=== PATIENT | male | born 1975 | race Caucasian/White ===

== ENCOUNTER 2020-12-01 11:54 | Outpatient (CLI) | payer OTHER, SELFPAY ==
--- NOTE | ~2020-12-01 | XR_ITS ---
EXAMINATION: XR chest 2V DATE: 12/01/2020 12:09 INDICATION: Chronic obstructive pulmonary disease. TECHNIQUE: Frontal and lateral views of the chest were obtained. COMPARISON: Chest 2 views 01/05/2017 FINDINGS: A calcified left lung nodule is consistent with old granulomatous disease. No pleural effus ion or pneumothorax. The heart size is normal. IMPRESSION: 1. No acute cardiopulmonary disease. Reviewed, dictated and finalized at location A.
== END 2020-12-01 11:55 | disposition home or self-care (01) ==
LOC: ANHIMG 12:00
PROVIDERS: PCP Family Medicine; Visit Provider Surgery
DX: J44.9 Chronic obstructive pulmonary disease, unspecified (principal); F17.210 Nicotine dependence, cigarettes, uncomplicated
CPT/HCPCS: 71046

== ENCOUNTER 2022-11-01 00:02 | Emergency (ER) | payer OTHER, SELFPAY ==
[2022-11-01 00:22] VITALS: BP 159/113; PULSE 96; RESP 20; TEMP 36.6; O2SAT 100
--- NOTE | 2022-11-01 00:49 | ECG_ITS ---
Measurements Intervals [place] Rate: 86 P: 31 VA: 146 QRS: 79 QRSD: 90 T: 56 QT: 359 QTc: 432 Interpretive Statements SINUS RHYTHM NORMAL ECG NO PREVIOUS ECG AVAILABLE FOR COMPARISON Electronically Signed On 11-01-2022 16:53:08 DIRECT SUPPORT SPECIALIST by Andi Haynes D.O.
[2022-11-01 01:42] LABS: Basophils Percent Auto 0.5 % (0.2-1.2); Eosinophils Absolute Auto 0.1 K/mm3 (0-0.3); Eosinophils Percent Auto 1.5 % (0-4.4); Hematocrit 42.9 % (42.0-52.0); Hemoglobin 14.1 g/dL (14.0-18.0); Immature Granulocyte Absolute 0.02 K/mm3 (0.00-0.031); Immature Granulocyte Percent A 0.3 % (0-0.5); Lymphocytes Absolute Auto 1.72 K/mm3 (0.9-3.2); Lymphocytes Percent Auto 21.9 % (18.3-44.2); Mean Corpuscular HGB Conc 32.9 g/dl (32-36); Mean Corpuscular Hemoglobin 27.9 pg (26-34); Mean Corpuscular Volume 84.8 fl (80-100); Monocytes Absolute Auto 0.7 K/mm3 (0.1-0.6); Monocytes Percent Auto 8.4 % (2.6-8.5); Neutrophils Absolute Auto 5.3 K/mm3 (1.3-6.7); Neutrophils Percent Auto 67.4 % (45.5-73.1); Platelet Count Result 338 k/mm3 (150-375); Red Blood Count 5.06 M/mm3 (4.6-6.20); Red Cell Distribution Width 12.2 % (11.5-14.5); White Blood Count 7.9 K/mm3 (4.5-10.0)
[2022-11-01 02:05] LABS: Alanine Aminotransferase 75 U/L (6-50); Albumin Level 4.6 g/dL (3.5-5.1); Alkaline Phosphatase 127 U/L (38-126); Anion Gap 7 mmol/L (8-16); Aspartate Amino Transferase 62 U/L (17-59); Bilirubin,Total 0.7 mg/dL (0.2-1.3); Blood Urea Nitrogen 16 mg/dL (9-20); Calcium 9.3 mg/dL (8.4-10.2); Carbon Dioxide 28 mmol/L (22-30); Chloride 101 mmol/L (98-107); Estimated CRCL calculation 140 ml/min; Estimated Glomerular Filt Rate > 60; Glucose 118 mg/dL (65-110); Sodium 136 mmol/L (137-145)
[2022-11-01 02:18] LABS: Acetaminophen < 10 ug/mL (10-30); Ethanol < 10 mg/dL (<10); Salicylate < 1.0 mg/dL (2-20)
[2022-11-01 02:19] LABS: Appearance Urine Clear (Clear); Bilirubin Urine Negative (Negative); Blood Urine Negative (Negative); Color Urine Dark Yellow (Yellow); Glucose Urine UA Negative (Negative); Ketones Urine Negative (Negative); Leukocyte Esterase Ur Negative LEU/UL (Negative); Nitrate Urine Negative (Negative); Protein Urine Negative (Negative); Specific Grav Ur 1.027 (1.001-1.035)
[2022-11-01 02:27] LABS: Add Urine Microscopic? NO
[2022-11-01 02:28] LABS: Barbiturate Screen Urine Negative (Negative); Benzodiazepines Screen Urine Negative (Negative)
[2022-11-01 02:29] LABS: Cannabinoid Screen Urine Positive (Negative); Cocaine Screen Urine Negative (Negative); Methadone Screen Urine Negative (Negative); Opiate Screen Urine Negative (Negative); Phencyclidine Screen Urine Negative (Negative)
[2022-11-01 02:38] LABS: SARS-CoV-2 RNA PCR Negative
--- NOTE | 2022-11-01 02:49 | PC.NURSE ---
Pt medically cleared and CRISIS called at this time.
[2022-11-01 02:51] LABS: Amphetamine Screen Urine Positive (Negative)
--- NOTE | 2022-11-01 03:36 | ED.GENADULT ---
HPI - General Adult General Chief complaint: Overdose <Emil Hughes MD - Last Filed: 11/01/22 19:27> Stated complaint: overdose <Emil Hughes MD - Last Filed: 11/01/22 19:27> Time Seen by Provider: 11/01/22 01:36 <Emil Hughes MD - Last Filed: 11/01/22 19:27> History of Present Illness HPI narrative: this is a 46-year-old male presenting ED for suicidal ideation. Patient was pulled over by the police and took 7 pills of fentanyl. This is approximatelly 700 mcg. Patient typically takes around 1250 mcg per day. He usually injects his fentanyl. The police brought the patient to the hospital for suspected impending overdose. During the nursing screening exam the patient stated that he wanted to kill himself and thinks about dying every day. I spoke with patient he denies suicidal or homicidal ideation. He denies access to a firearm. He denies auditory or visual hallucinations. He does admit to alcohol and meth and cannabis use. He is not on any psychiatric medications. he has attempted to commit suicide in the past by hanging himself and overdose. Patient denies physical complaints this time. <Emil Hughes MD - Last Filed: 11/01/22 19:27> [facility] Past Medical History Medical History: Medical History Bipolar 1 disorder <Emil Hughes MD - Last Filed: 11/01/22 19:27> Social History Social History: Social History (Updated 11/01/22 @ 03:38 by Emil Hughes MD) Social History: positive for methamphetamines cigarettes IV fentanyl and THC Substance use type: opiates <Emil Hughes MD - Last Filed: 11/01/22 19:27> Exam Narrative: APPEARANCE: No apparent distress. Head: atraumatic. EYES: EOMI, NOSE: Atraumatic NECK: Trachea midline RESPIRATORY: No increased rate of breathing, clear to auscultation bilaterally CARDIOVASCULAR: RRR, no peripheral edema ABDOMINAL: Non-distended MUSCULOSKELETAl: No obvious deformities NEURO: Alert. Moving 4/4 extremities SKIN:: track maurer over the patient's arms PSYCHIATRIC: Normal affect <Emil Hughes MD - Last Filed: 11/01/22 19:27> Course Course Emergency Course: pt evaluated by crisis and not determined a threat for self harm. pt has a significant substance abuse history and wants to go into rehab and has resources to call. will discharge home for outpatient follow up with safety plan. <Hermann Leiva III, DO - Last Filed: 11/01/22 18:21> Vital Signs Vital signs: Vital Signs Temperature 97.9 F 11/01/22 00:22 Pulse Rate 96 11/01/22 00:22 Respiratory Rate 20 11/01/22 00:22 Blood Pressure 159/113 H 11/01/22 00:22 Pulse Oximetry 100 11/01/22 00:22 Oxygen Delivery Room Air 11/01/22 00:22 Temperature 97.7 F 11/01/22 10:53 Pulse Rate 69 11/01/22 10:53 Respiratory Rate 15 11/01/22 10:53 Blood Pressure 129/87 11/01/22 10:53 Pulse Oximetry 100 11/01/22 10:53 Oxygen Delivery Room Air 11/01/22 00:22 <Emil Hughes MD - Last Filed: 11/01/22 19:27> Vital Signs Temperature 97.9 F 11/01/22 00:22 Pulse Rate 96 11/01/22 00:22 Respiratory Rate 20 11/01/22 00:22 Blood Pressure 159/113 H 11/01/22 00:22 Pulse Oximetry 100 11/01/22 00:22 Oxygen Delivery Room Air 11/01/22 00:22 Temperature 97.7 F 11/01/22 10:53 Pulse Rate 69 11/01/22 10:53 Respiratory Rate 15 11/01/22 10:53 Blood Pressure 129/87 11/01/22 10:53 Pulse Oximetry 100 11/01/22 10:53 Oxygen Delivery Room Air 11/01/22 00:22 <Hermann Leiva III, DO - Last Filed: 11/01/22 18:21> Medical Decision Making MDM Narrative Medical decision making narrative: -Presentation: 46-year-old male presenting ED after swallowing multiple fentanyl pills. Patient uses fentanyl heavily and is unlikely to overdose from the amount he took. He will be monitored for respiratory depression. Additionally the patie
[2022-11-01 06:05] VITALS: BP 141/86; PULSE 71; RESP 18; O2SAT 98
[2022-11-01 10:53] VITALS: BP 129/87; PULSE 69; RESP 15; TEMP 36.5; O2SAT 100
== END 2022-11-01 11:07 | disposition home or self-care (01) ==
PROVIDERS: Emergency Medicine; Emergency Provider Emergency Medicine; PCP Emergency Medicine
DX: T40.411A Poisoning by fentanyl or fentanyl analogs, accidental (unintentional), initial encounter (principal); F19.99 Other psychoactive substance use, unspecified with unspecified psychoactive substance-induced disorder; Z20.822 Contact with and (suspected) exposure to COVID-19
CPT/HCPCS: 36415; 80053; 80307; 81003; 84443; 85025; 93005; 99284; U0003; U0005

== ENCOUNTER 2024-04-23 22:39 | Emergency (ER) | payer OTHER, SELFPAY ==
--- NOTE | ~2024-04-23 | XR_ITS ---
Right Forearm AP and lateral views of the right forearm were performed. Clinical History: Posterior wound Findings: No fracture or dislocation is seen. Osseous alignment in anatomic. Joint spaces are prese rved. There is soft tissue irregularity along the extensor aspect of the midforearm, which could refl ect wound. Impression: Soft tissue laceration or wound at the extensor aspect of the midforearm. Correlate with physical exa m. No osseous or articular abnormality. Reviewed, dictated and finalized at location M. Impression: Soft tissue laceration or wound at the extensor aspect of the midforearm. Corre late with physical exam. No osseous or articular abnormality.
[2024-04-23 22:41] VITALS: BP 132/83; PULSE 84; RESP 20; TEMP 36.4; O2SAT 100
--- NOTE | 2024-04-24 02:08 | PC.NURSE ---
Patient called to triage area for vitals. No answer.
--- NOTE | 2024-04-24 02:09 | PC.NURSE ---
Patient called to triage area for vitals. No answer
[2024-04-24 02:24] VITALS: BP 124/88; PULSE 81; RESP 15; TEMP 36.7; O2SAT 100
[2024-04-24 05:00] LABS: Basophils Percent Auto 0.4 % (0.2-1.2); Eosinophils Absolute Auto 0.2 K/mm3 (0-0.3); Eosinophils Percent Auto 3.2 % (0-4.4); Hematocrit 38.4 % (42.0-52.0); Hemoglobin 12.7 g/dL (14.0-18.0); Immature Granulocyte Absolute 0.02 K/mm3 (0.00-0.031); Immature Granulocyte Percent A 0.3 % (0-0.5); Lymphocytes Absolute Auto 1.81 K/mm3 (0.9-3.2); Lymphocytes Percent Auto 26.7 % (18.3-44.2); Mean Corpuscular HGB Conc 33.1 g/dl (32-36); Mean Corpuscular Hemoglobin 28.7 pg (26-34); Mean Corpuscular Volume 86.9 fl (80-100); Mean Platelet Volume 9.8 fl (7.4-10.4); Monocytes Absolute Auto 1.1 K/mm3 (0.1-0.6); Monocytes Percent Auto 16.5 % (2.6-8.5); Neutrophils Absolute Auto 3.6 K/mm3 (1.3-6.7); Neutrophils Percent Auto 52.9 % (45.5-73.1); Platelet Count Result 223 k/mm3 (150-375); Red Blood Count 4.42 M/mm3 (4.6-6.20); Red Cell Distribution Width 12.2 % (11.5-14.5); White Blood Count 6.8 K/mm3 (4.5-10.0)
[2024-04-24 05:12] LABS: Alanine Aminotransferase 22 U/L (6-50); Albumin Level 3.9 g/dL (3.5-5.1); Alkaline Phosphatase 80 U/L (38-126); Anion Gap 9 mmol/L (4-12); Aspartate Amino Transferase 25 U/L (17-59); Bilirubin,Total 0.7 mg/dL (0.2-1.3); Blood Urea Nitrogen 16 mg/dL (9-20); CRP 4.4 mg/dL (<1.0); Calcium 8.8 mg/dL (8.4-10.2); Carbon Dioxide 26 mmol/L (22-30); Chloride 103 mmol/L (98-107); Estimated CRCL calculation 102 ml/min; Estimated Glomerular Filt Rate > 60; Glucose 98 mg/dL (65-110); Potassium 3.6 mmol/L (3.4-5.0); Sodium 138 mmol/L (137-145)
[2024-04-24 05:35] LABS: Erythrocyte Sedimentation Rate 35 mm/hr (0-20)
[2024-04-24 05:40] VITALS: BP 124/84; PULSE 66; RESP 16; O2SAT 99
[2024-04-24] MEDS: SULFAMETHOXAZOLE/TRIMETHOPRIM 800/160 MG DS TABLET 2 TAB PO (05:40)
--- NOTE | 2024-04-24 06:03 | ED.GENADULT ---
HPI - General Adult General Chief complaint: Skin/Abscess/Foreign Body Stated complaint: skin infection, drug use Time Seen by Provider: 04/24/24 04:16 History of Present Illness HPI narrative: Patient is a 48-year-old male who presents to the emergency department dizzy evening complaining of a wound to his right forearm that has been ongoing for the past 3 weeks. Patient admits that he does use IV drug use and has been shooting up some drugs on his right forearm. Patient states that he has been trying to debride the wound and clean it at home himself with minimal improvement. Denies any fevers or chills at home. No additional symptoms or concerns at this time. Related Data Allergies Allergy/AdvReac Type Severity Reaction Status Date / Time No Known Allergies Allergy Verified 04/23/24 22:53 Review of Systems Review of Systems: All systems are reviewed and are negative unless stated otherwise in the HPI. [facility] Past Medical History Medical History Bipolar 1 disorder Bipolar 1 disorder Cigarette nicotine dependence COPD (chronic obstructive pulmonary disease) Drug abuse and dependence HTN (hypertension) Nicotine dependence, unspecified, uncomplicated Family History Family History Father Cerebrovascular accident Diabetes mellitus Emphysema lung Sibling Skin cancer Social History Social History Social History: positive for methamphetamines cigarettes IV fentanyl and THC Smoking packs per day: 1 Smoking cigarettes per day: 20.0 Years smoked: 30 Smoking pack-years: 30.00 Smoking status: Current every day smoker Tobacco type: cigarettes Alcohol intake: never Substance use: current Substance use type: marijuana, heroin, opiates and methamphetamine Living arrangements: with family Occupation/Education: unemployed Gender identity (if verbalized by the patient): Male Exam Narrative: General: Alert, awake, afebrile, in no acute distress. HEENT: PERRL, no rhinorrhea, no post nasal drip, oropharynx clear. Cardiovascular: Regular rate and rhythm, no murmurs, rubs or gallops, no peripheral edema. Respiratory: Clear to auscultation bilaterally, no tachypnea, no wheezing, no rhonchi, no rubs, no respiratory distress. Abdomen: Soft, nontender, nondistended, no rebound, no guarding, no peritoneal signs. Musculoskeletal: No joint swelling or deformity, normal muscle tone. Skin: Right forearm round wound measuring approximately 2 x 3 cm, no pustular drainage, surrounding erythema consistent with cellulitis. Neurological: Alert and oriented to person, place, and time. Follows all commands. No focal deficits, speech is clear and fluent. Course Vital Signs Vital signs: Vital Signs Temperature 97.5 F L 04/23/24 22:41 Pulse Rate 84 04/23/24 22:41 Respiratory Rate 20 04/23/24 22:41 Blood Pressure 132/83 04/23/24 22:41 Pulse Oximetry 100 04/23/24 22:41 Oxygen Delivery Room Air 04/23/24 22:41 Temperature 98.1 F 04/24/24 02:24 Pulse Rate 66 04/24/24 05:40 Respiratory Rate 16 04/24/24 05:40 Blood Pressure 124/84 04/24/24 05:40 Pulse Oximetry 99 04/24/24 05:40 Oxygen Delivery Room Air 04/23/24 22:41 Medical Decision Making MDM Narrative Medical decision making narrative: The patient was evaluated by myself in the emergency department. History is obtained from patient who is an independent historian and physical exam was performed. External medical records were reviewed at this time. IV was established and pertinent tests were ordered. Laboratory results obtained revealing an elevated ESR of 35 and CRP of 4.4, otherwise no acute process, white blood cell count normal at 6.8. Imaging studies obtained included right forearm x-ray which was independently interpreted by me re
[2024-04-24 06:45] VITALS: BP 120/86; PULSE 77; RESP 16; O2SAT 97
== END 2024-04-24 06:46 | disposition home or self-care (01) ==
PROVIDERS: Emergency Provider Emergency Medicine; PCP Emergency Medicine
DX: L03.113 Cellulitis of right upper limb (principal); J44.9 Chronic obstructive pulmonary disease, unspecified; I10 Essential (primary) hypertension; F17.210 Nicotine dependence, cigarettes, uncomplicated
CPT/HCPCS: 36415; 73090; 80053; 85025; 85652; 86140; 99283; A9270